=== PATIENT | female | born 1990 | race Caucasian/White ===

== ENCOUNTER 2021-08-16 10:58 | Outpatient (CLI) | payer BC, OTHER, SELFPAY ==
[2021-08-16 11:17] LABS: Add Urine Microscopic? YES; Appearance Urine Sl Cloudy (Clear); Basophils Absolute Auto 0.05 K/mm3 (0.00-0.10); Basophils Percent Auto 0.8 % (0.0-1.0); Bilirubin Urine Negative (Negative); Blood Urine Negative (Negative); Color Urine Light Yellow (Yellow); Eosinophils Absolute Auto 0.16 K/mm3 (0.02-0.50); Eosinophils Percent Auto 2.6 % (1.0-6.0); Glucose Urine UA Negative (Negative); Hematocrit 40.9 % (35.0-49.0); Immature Granulocyte Absolute 0.01 K/mm3 (0.00-0.00); Immature Granulocyte Percent A 0.2 % (0.0-0.0); Ketones Urine Negative (Negative); Leukocyte Esterase Ur Trace LEU/UL (Negative); Lymphocytes Absolute Auto 2.45 K/mm3 (1.10-4.50); Mean Corpuscular HGB Conc 31.8 g/dL (32.0-36.0); Mean Corpuscular Hemoglobin 27.5 pg (27.0-31.0); Mean Corpuscular Volume 86.7 fL (78.0-102.0); Mean Platelet Volume 10.6 fl (9.2-11.8); Monocytes Absolute Auto 0.57 K/mm3 (0.10-0.90); Monocytes Percent Auto 9.3 % (2.0-11.0); Neutrophils Absolute Auto 2.9 K/mm3 (1.7-7.2); Neutrophils Percent Auto 47.1 % (50.0-70.0); Nitrate Urine Negative (Negative); Platelet Count Result 268 K/mm3 (150-420); Protein Urine Negative (Negative); Red Blood Count 4.72 M/mm3 (4.20-5.40); Red Cell Distribution Width 12.8 % (11.6-14.4); Specific Grav Ur 1.015 (1.010-1.020); Urobilinogen Urine 0.2 mg/dL (0.2-1.0); White Blood Count 6.1 K/mm3 (4.8-10.8)
[2021-08-16 11:30] LABS: RBC Urine None seen /hpf (0-2); Squamous Epithelial Cell Urine Moderate /hpf (Few); WBC Urine 0-3 /hpf (0-3)
[2021-08-16 11:31] LABS: Bacteria Urine 1+ /hpf
[2021-08-16 11:49] LABS: Hemoglobin A1C 5.4 % (<5.7)
[2021-08-16 12:35] LABS: Alanine Aminotransferase 20 U/L (14-59); Albumin Level 4.1 g/dL (3.4-5.0); Alkaline Phosphatase 63 U/L (46-116); Anion Gap 7 mmol/L (8-16); Aspartate Amino Transferase 27 U/L (15-37); Bilirubin,Total 0.6 mg/dL (0.00-1.00); Blood Urea Nitrogen 13 mg/dL (7-18); Calcium 8.8 mg/dL (8.5-10.1); Carbon Dioxide 29 mmol/L (21-32); Chloride 102 mmol/L (98-108); Cholesterol 195 mg/dL (0-200); Estimated Glomerular Filt Rate > 60; Folic Acid > 20.0 ng/mL (8.6->20); Free T4 Free Thyroxine 0.83 ng/dL (0.76-1.46); Glucose 79 mg/dL (70-99); HDL Direct 40 mg/dL (40-60); LDL Cholesterol Calculated 129 mg/dL (<130); Osmolality Calculated 285 mOsm/kg (285-295); Potassium 4.3 mmol/L (3.5-5.1); Sodium 138 mmol/L (136-145); Thyroid Stimulating Hormone 2.13 uIU/mL (0.36-3.74); Total Protein 7.4 g/dL (6.4-8.2); Triglycerides 129 mg/dL (0-150); Vitamin B12 585 pg/mL (193-986)
[2021-08-19 14:05] LABS: Vitamin D 25 Hydroxy 22 ng/mL (30-100)
== END 2021-08-16 10:59 | disposition home or self-care (01) ==
LOC: CHSLAB 11:03
PROVIDERS: PCP Physician Assistant; Visit Provider Physician Assistant
DX: Z00.00 Encounter for general adult medical examination without abnormal findings (principal); Z13.220 Encounter for screening for lipoid disorders; Z13.1 Encounter for screening for diabetes mellitus; Z13.228 Encounter for screening for other metabolic disorders
CPT/HCPCS: 36415; 80053; 80061; 81001; 82306; 82607; 82746; 83036; 84439; 84443; 85025

== ENCOUNTER 2024-01-01 08:30 | Outpatient (CLI) | payer BC, OTHER, SELFPAY ==
[2024-01-01 13:02] LABS: Basophils Absolute Auto 0.04 K/mm3 (0.00-0.10); Basophils Percent Auto 0.6 % (0.0-1.0); Eosinophils Absolute Auto 0.13 K/mm3 (0.02-0.50); Eosinophils Percent Auto 1.9 % (1.0-6.0); Hematocrit 38.6 % (35.0-49.0); Hemoglobin 12.8 g/dL (12.0-15.0); Immature Granulocyte Absolute 0.02 K/mm3 (0.00-0.00); Immature Granulocyte Percent A 0.3 % (0.0-0.0); Lymphocytes Absolute Auto 2.35 K/mm3 (1.10-4.50); Lymphocytes Percent Auto 35.2 % (18.0-42.0); Mean Corpuscular HGB Conc 33.2 g/dL (32-36); Mean Corpuscular Hemoglobin 28.1 pg (27.0-31.0); Mean Corpuscular Volume 84.8 fL (78.0-102.0); Mean Platelet Volume 11.4 fl (9.2-11.8); Monocytes Absolute Auto 0.62 K/mm3 (0.10-0.90); Monocytes Percent Auto 9.3 % (2.0-11.0); Neutrophils Absolute Auto 3.51 K/mm3 (1.70-7.20); Neutrophils Percent Auto 52.7 % (50.0-70.0); Platelet Count Result 236 K/mm3 (150-420); Red Blood Count 4.55 M/mm3 (4.20-5.40); Red Cell Distribution Width 12.8 % (11.6-14.4); White Blood Count 6.7 K/mm3 (4.8-10.8)
[2024-01-01 13:21] LABS: Hemoglobin A1C 5.3 % (<5.7)
[2024-01-01 13:43] LABS: Alanine Aminotransferase 17 U/L (14-59); Albumin Level 4.1 g/dL (3.4-5.0); Alkaline Phosphatase 56 U/L (46-116); Anion Gap 10 mmol/L (4-12); Aspartate Amino Transferase 13 U/L (15-37); Bilirubin,Total 0.5 mg/dL (0.00-1.00); Blood Urea Nitrogen 16 mg/dL (7-18); Calcium 8.9 mg/dL (8.5-10.1); Carbon Dioxide 26 mmol/L (21-32); Chloride 101 mmol/L (98-108); Cholesterol 203 mg/dL (0-200); Estimated Glomerular Filt Rate > 60; Folic Acid 16.7 ng/mL (8.6->20); Glucose 85 mg/dL (70-99); HDL Direct 38 mg/dL (40-60); LDL Cholesterol Calculated 145 mg/dL (<130); Osmolality Calculated 284 mOsm/kg (285-295); Potassium 3.8 mmol/L (3.5-5.1); Sodium 137 mmol/L (136-145); Thyroid Stimulating Hormone 3.57 uIU/mL (0.36-3.74); Total Protein 7.9 g/dL (6.4-8.2); Triglycerides 99 mg/dL (0-150); Vitamin B12 538 pg/mL (193-986)
[2024-01-04 06:12] LABS: FSH 3.1 mIU/mL; LH 5.6 mIU/mL; Progesterone 6.4 ng/mL; Prolactin 19.3 ng/mL
[2024-01-12 03:24] LABS: Estradiol, Ultrasensitive 92 pg/mL
== END 2024-01-01 08:31 | disposition home or self-care (01) ==
LOC: CHSLAB 08:34
PROVIDERS: PCP Physician Assistant; Visit Provider Physician Assistant
DX: Z13.220 Encounter for screening for lipoid disorders (principal); Z13.1 Encounter for screening for diabetes mellitus; N92.6 Irregular menstruation, unspecified; Z79.899 Other long term (current) drug therapy
CPT/HCPCS: 36415; 80053; 80061; 82607; 82670; 82746; 83001; 83002; 83036; 84144; 84146; 84439; 84443; 85025

== ENCOUNTER 2024-03-25 08:41 | Outpatient (CLI) | payer BC, SELFPAY ==
[2024-03-25 09:18] LABS: Cholesterol 195 mg/dL (0-200); HDL Direct 40 mg/dL (40-60); LDL Cholesterol Calculated 132 mg/dL (<130); Triglycerides 115 mg/dL (0-150)
[2024-03-30 04:09] LABS: Testosterone Total 12 ng/dL (2-45)
== END 2024-03-25 08:42 | disposition home or self-care (01) ==
PROVIDERS: PCP Physician Assistant; Visit Provider Physician Assistant
DX: E78.5 Hyperlipidemia, unspecified (principal)
CPT/HCPCS: 36415; 80061; 84403